=== PATIENT | male | born 1990 | race Caucasian/White ===

== ENCOUNTER 2020-05-18 18:55 | Emergency (ER) | payer OTHER, SELFPAY ==
[2020-05-18 19:40] VITALS: BP 159/89; PULSE 114; RESP 20; TEMP 36.2; O2SAT 100
[2020-05-18 20:21] LABS: Basophils Absolute Auto 0.04 K/mm3 (0.00-0.10); Basophils Percent Auto 0.7 % (0.0-1.0); Eosinophils Absolute Auto 0.02 K/mm3 (0.02-0.50); Eosinophils Percent Auto 0.3 % (1.0-6.0); Hematocrit 52.5 % (40.0-54.0); Hemoglobin 18.2 g/dL (14.0-18.0); Immature Granulocyte Absolute 0.02 K/mm3 (0.00-0.00); Immature Granulocyte Percent A 0.3 % (0.0-0.0); Lymphocytes Absolute Auto 3.26 K/mm3 (1.10-4.50); Lymphocytes Percent Auto 55.3 % (18.0-42.0); Mean Corpuscular HGB Conc 34.7 g/dL (32.0-36.0); Mean Corpuscular Hemoglobin 30.6 pg (27.0-31.0); Mean Corpuscular Volume 88.2 fL (78.0-102.0); Mean Platelet Volume 9.7 fl (8.7-11.0); Monocytes Absolute Auto 0.55 K/mm3 (0.10-0.90); Monocytes Percent Auto 9.3 % (2.0-11.0); Neutrophils Percent Auto 34.1 % (50.0-70.0); Platelet Count Result 360 K/mm3 (150-420); Red Blood Count 5.95 M/mm3 (4.70-6.10); Red Cell Distribution Width 11.9 % (11.6-14.4); White Blood Count 5.9 K/mm3 (4.8-10.8)
[2020-05-18 20:30] VITALS: BP 152/78; PULSE 115; RESP 20; O2SAT 99
[2020-05-18] MEDS: SODIUM CHLORIDE 0.9% IV 1,000 ML 999 ML (20:36)
[2020-05-18 20:44] LABS: Alanine Aminotransferase 43 U/L (16-63); Albumin Level 4.7 g/dL (3.4-5.0); Alkaline Phosphatase 72 U/L (46-116); Anion Gap 16 mmol/L (8-16); Aspartate Amino Transferase 52 U/L (15-37); Bilirubin,Total 1.6 mg/dL (0.00-1.00); Blood Urea Nitrogen 10 mg/dL (7-18); Calcium 8.8 mg/dL (8.5-10.1); Carbon Dioxide 25 mmol/L (21-32); Chloride 102 mmol/L (98-108); Estimated CRCL calculation 74 ml/min; Estimated Glomerular Filt Rate 54; Glucose 107 mg/dL (70-99); Osmolality Calculated 295 mOsm/kg (285-295); Potassium 3.6 mmol/L (3.5-5.1); Sodium 143 mmol/L (136-145); Thyroid Stimulating Hormone 2.83 uIU/mL (0.36-3.74); Total Protein 8.5 g/dL (6.4-8.2)
[2020-05-18 20:45] LABS: Appearance Urine Clear (Clear); Bilirubin Urine Negative (Negative); Color Urine Yellow (Yellow); Glucose Urine UA Negative (Negative); Ketones Urine Negative (Negative); Leukocyte Esterase Ur Negative LEU/UL (Negative); Nitrate Urine Negative (Negative); Protein Urine Trace (Negative); Urobilinogen Urine 0.2 mg/dL (0.2-1.0)
[2020-05-18 20:48] LABS: Ethanol 325 mg/dL (0-6)
[2020-05-18 20:51] LABS: Add Urine Microscopic? YES; Blood Urine Trace-Intact (Negative); Squamous Epithelial Cell Urine Occasional /hpf (Few)
--- NOTE | 2020-05-18 20:52 | ED.ANXIETY ---
HPI - Anxiety General Chief Complaint: Anxiety Stated Complaint: panic attack, psych eval Source: patient and family Mode of arrival: ambulatory Limitations: no limitations History of Present Illness HPI narrative: This is a 29-year-old male presents with his father after he has been having episodes of anxiety causing emotional distress, currently has been drinking with some history of sadness depression with anxiety but has not been seen by a primary care physician. Currently there is no suicidal intent or plan, has been having this anxiety off and on since his left him and took there are baby along with her. complaint: anxiety Onset (ago): day(s) Severity: moderate Quality: intermittent Provoking factors: emotional stress Relieving factors: nothing Exacerbating factors: thinking about event Associated symptoms: chest pain and shortness of breath Related Data Allergies Allergy/AdvReac Type Severity Reaction Status Date / Time No Known Allergies Allergy Unverified 08/23/19 09:36 Review of Systems Review of Systems: All systems reviewed & are unremarkable except as noted in HPI and below PMFSH Past Medical History Medical History Hypogonadotropic hypogonadism Social History Social History Smoking status: Never smoker Alcohol intake: current Gender identity (if verbalized by the patient): Female Exam Const: General: no acute distress and alert Orientation/consciousness: patient oriented x3 HENMT: Head: normal to inspection Eyes: Pupils: Equal, round and reactive pupils present EOM: EOMs intact bilaterally Neck: Neck: normal visual inspection, no lymphadenopathy and no meningeal signs Chest: Chest palpation & inspection: normal inspection of the chest Resp: Effort & Inspection: normal respiratory effort Auscultation: clear to auscultation bilaterally GI: GI Palp: Yes Soft to palpation Auscultation: normal bowel sounds Back/Spine/Pelvis: Back: no CVA tenderness Skin: General skin exam: normal color Rashes: no rashes Neuro: General: patient oriented x3, moves all extremities and no meningeal signs Extrem: General: normal to inspection and no pedal edema Psych: Affect: Anxious affect present Thought content: Yes Normal thought content present Course Course Emergency Course: Patient currently anxious, has a elevated blood alcohol level, will administer 0.5 of Xanax, with the advice of follow-up with primary care physician for further evaluation and treatment. Vital Signs Vital signs: Vital Signs Temperature 36.2 C L 05/18/20 19:40 Pulse Rate 114 H 05/18/20 19:40 Respiratory Rate 20 05/18/20 19:40 Blood Pressure 159/89 H 05/18/20 19:40 Pulse Oximetry 100 05/18/20 19:40 Temperature 36.2 C L 05/18/20 19:40 Pulse Rate 114 H 05/18/20 19:40 Respiratory Rate 20 05/18/20 19:40 Blood Pressure 159/89 H 05/18/20 19:40 Pulse Oximetry 100 05/18/20 19:40 MDM - Anxiety Lab Data Result diagrams: 05/18/20 19:55 05/18/20 19:55 Labs: Lab Results 05/18/20 05/18/20 05/18/20 Range/Units 19:55 19:55 20:40 WBC 5.9 (4.8-10.8) K/mm3 RBC 5.95 (4.70-6.10) M/mm3 Hgb 18.2 H (14.0-18.0) g/dL Hct 52.5 (40.0-54.0) % MCV 88.2 (78.0-102.0) fL MCH 30.6 (27.0-31.0) pg MCHC 34.7 (32.0-36.0) g/dL RDW 11.9 (11.6-14.4) % Plt Count 360 (150-420) K/mm3 MPV 9.7 (8.7-11.0) fl Immature Gran % (Auto) 0.3 H (0.0-0.0) % Neut % (Auto) 34.1 L (50.0-70.0) % Lymph % (Auto) 55.3 H (18.0-42.0) % Yates % (Auto) 9.3 (2.0-11.0) % Eos % (Auto) 0.3 L (1.0-6.0) % Baso % (Auto) 0.7 (0.0-1.0) % Lymph # (Auto) 3.26 (1.10-4.50) K/mm3 Yates # (Auto) 0.55 (0.10-0.90) K/mm3 Eos # (Auto) 0.02 (0.02-0.50) K/mm3 Baso # (Auto) 0.04 (0.00-0.10) K/mm3 Abs Immat Gran
[2020-05-18 20:54] LABS: Amphetamine Screen Urine Negative (Negative); Barbiturate Screen Urine Negative (Negative); Benzodiazepines Screen Urine Negative (Negative); Cannabinoid Screen Urine Negative (Negative); Cocaine Screen Urine Negative (Negative); Methadone Screen Urine Negative (Negative); Opiate Screen Urine Negative (Negative); Phencyclidine Screen Urine Negative (Negative)
[2020-05-18] MEDS: ALPRAZolam (*CRX) 0.5 MG TABLET PO (21:17)
[2020-05-18 21:30] VITALS: BP 150/76; PULSE 118; RESP 20; O2SAT 96
== END 2020-05-18 21:30 | disposition home or self-care (01) ==
PROVIDERS: Emergency Provider Emergency Medicine
DX: F41.9 Anxiety disorder, unspecified (principal); F41.0 Panic disorder [episodic paroxysmal anxiety]; F10.920 Alcohol use, unspecified with intoxication, uncomplicated
CPT/HCPCS: 36415; 80053; 80307; 81001; 84443; 85025; 96360; 99283; A9270; J7030

== ENCOUNTER 2025-03-23 13:25 | Emergency (ER) | payer OTHER, SELFPAY ==
[2025-03-23] VITALS (14 sets, daily range): BP systolic 137–156; BP diastolic 96–113; PULSE 88–111; RESP 26; TEMP 36.7; O2SAT 92–99
--- NOTE | ~2025-03-23 | XR_ITS ---
Examination: XR chest 1V portable Clinical History: SOB Comparison: None Technique: Portable AP Findings: Heart size normal. Lungs clear. No acute bony abnormality. IMPRESSION: 1. No acute cardiopulmonary findings given portable technique. Reviewed, dictated and finalized at location R.
--- NOTE | 2025-03-23 13:32 | ECG_ITS ---
Test Date: 2025-03-23 13:36:56 Measurements Intervals [place] Rate: 102 P: 30 NV: 132 QRS: -19 QRSD: 109 T: -33 QT: 347 QTc: 452 Interpretive Statements SINUS TACHYCARDIA BORDERLINE R WAVE PROGRESSION, ANTERIOR LEADS NONSPECIFIC T-WAVE ABNORMALITY- ANTERIOR LEADS BASELINE WANDER- II, III, AVR, AVL, AVF, V1, V4 BORDERLINE ECG No previous ECG available for comparison Electronically Signed On 03-23-2025 14:17:39 CDT by Allan Gross D.O.
--- NOTE | 2025-03-23 13:34 | ED_ITS ---
HPI - SOB/Dyspnea General Chief Complaint: Shortness of Breath/Dyspnea Stated Complaint: alcohol withdrawls Time Seen by Provider: 03/23/25 13:27 Source: patient and family Mode of arrival: ambulatory Limitations: no limitations History of Present Illness HPI Narrative: Patient is a 34-year-old male with significant alcoholism here with beginning stages of detox day 1 and having chest pain and shortness of breath. He is having many other nonspecific complaints related to the withdrawal. He has been in this situation before and said it feels the same. He is planning to go to inpatient detox after he leaves the emergency room. Assuming he does not need admission. MD elicited complaint: shortness of breath and chest pain Pertinent past history: other (Diabetes 2, hypertension, alcoholism, congestive heart failure) Onset (ago): day(s) (1) Context: other (Patient currently in alcohol withdrawal/detox planning inpatient services when he leaves emergency room; he is having chest pain and shortness of breath and needed medical evaluation prior to detox/rehab) Timing: constant Severity: moderate Exacerbating factors: nothing Relieving factors: nothing Known history of: congestive heart failure and diabetes Associated symptoms: chest pain, pain with inspiration, cough, paresthesias, carpopedal spasm, sense of impending doom and dizziness Treatment prior to arrival: none Related Data Home oxygen amount: none Home Medications ?Medication ?Instructions ?Recorded ?Confirmed ?Last Taken ?Type amphetamine 15 mg tablet, mg PO 03/23/25 Unknown Hist ory immediate and extended release 24 hour (Dyanavel XR) empagliflozin .ROUTE 03/23/25 Unknown His tory folic acid .ROUTE 03/23/25 Unknown His tory metoprolol tartrate .ROUTE 03/23/25 Unknown His tory Allergies Allergy/AdvReac Type Severity Reaction Status Date / Time No Known Allergies Allergy Verified 03/23/25 13:29 Review of Systems 2 Review of Systems: All systems reviewed & are unremarkable except as noted in HPI and below Constitutional: Constitutional: Reports no additional constitutional complaints Eyes: Eyes: Reports no additional eye complaints ENT: Reports system reviewed and no additional complaints, except as documented Cardiovascular: Cardiovascular: Reports no additional cardiovascular complaints Respiratory: Respiratory: Reports no additional respiratory complaints Gastrointestinal: Gastrointestinal: Reports no additional gastrointestinal complaints Genitourinary: Genitourinary: Reports no additional male genitourinary complaints Musculoskeletal: Musculoskeletal: Reports no additional musculoskeletal complaints Integumentary/Breasts: Skin/Breast: Reports system reviewed and no additional complaints, except as docu Neurologic: Reports system reviewed and no additional complaints, except as documented Psychiatric: Psychiatric: Reports no additional psychiatric complaints Endocrine: Endocrine: Reports no additional endocrine complaints Hematologic/Lymphatic: Hematologic/Lymphatic: Reports no additional hematologic/lymphatic complaints Allergic/Immunologic: Allergic/Immunologic: Reports no additional allergic/immunologic complaints PMFSH Past Medical History Medical History Hypogonadotropic hypogonadism Social History Social History Smoking status: Never smoker Alcohol intake: current Gender identity (if verbalized by the patient): Female Exam 2 Const: General: ill appearing Nutritional Appearance: well nourished O rientation/consciousness: patient oriented x3 Limitations: other limitations (Clinical condition of detox/withdrawal from alcoholism) HENMT: Head: normal to inspection Ears: external ears normal F lizeth/Nose/Sinus: Normal external nose present Eyes: Conjunctivae: conjunctivae normal Pupils: Equal, round and reactive pupils present EOM: EOMs intact bilaterally Neck: Neck: normal visual inspection Chest: Chest palpation & inspection: normal inspection of the chest Resp: Effort & Inspection: abnormal respiratory effort, not labored, no retractions, tachypneic and no use of accessory muscles Auscultation: clear to auscultation bilaterally, no crackles, no rales, no rhonchi, no wheezes, breath sounds present and diminished lung sounds Cardio: Rate: tachycardic Rhythm: regular rhythm Heart sounds: no murmurs GI: Inspection: non-distended GI Palp: Yes Soft to palpation and No Tenderness to palpation present (GI) Auscultation: normal bowel sounds : General: Yes bladder normal to palpation Back/Spine/Pelvis: Back: no CVA tenderness Skin: General skin exam: normal color Rashes: no rashes Wounds: no wounds Neuro: General: patient oriented x3, moves all extremities and no meningeal signs Extrem: General: normal to inspection, no clubbing, cyanosis or edema and no pedal edema Psych: Mental Status: mental status grossly normal Affect: normal affect Attitude: cooperative Course Vital Signs Vital signs: Vital Signs Temperature 36.7 C 03/23/25 13:27 Pulse Rate 105 H 03/23/25 13:27 Respiratory Rate 26 H 03/23/25 13:27 Blood Pressure 145/105 H 03/23/25 13:27 Pulse Oximetry 99 03/23/25 13:27 Oxygen Delivery Room Air 03/23/25 13:27 Temperature 36.7 C 03/23/25 13:27 Pulse Rate 88 03/23/25 15:41 Respiratory Rate 26 H 03/23/25 13:46 Blood Pressure 150/97 H 03/23/25 15:31 Pulse Oximetry 94 03/23/25 15:31 Oxygen Delivery Room Air 03/23/25 13:38 MDM - SOB/Dyspnea MDM Narrative Medical decision making narrative: Patient is a 34-year-old male with chest pain and shortness of breath currently in alcohol detox/withdrawal. Cardiac and withdrawal workup at this time. IV fluids. Zofran. Protonix. Lab Data Attestation: I reviewed the patient's lab results. 03/23/25 13:52 03/23/25 13:52 Labs: Lab Results 03/23/25 03/23/25 03/23/25 Range/Units 13:52 15:49 15:54 WBC 6.0 (4.8-10.8) K/mm3 RBC 5.53 (4.70-6.10) M/mm3 Hgb 17.3 (14.0-18.0) g/dL Hct 49.5 (40.0-54.0) % MCV 89.5 (78.0-102.0) fL MCH 31.3 H (27.0-31.0) pg MCHC 34.9 (32-36) g/dL RDW 13.5 (11.6-14.4) % Plt Count 251 (150-420) K/mm3 MPV 9.7 (8.7-11.0) fl Immature Gran % (Auto) 0.2 H (0.0-0.0) % Neut % (Auto) 61.0 (50.0-70.0) % Lymph % (Auto) 27.3 (18.0-42.0) % [place] % (Auto) 10.6 (2.0-11.0) % Eos % (Auto) 0.2 L (1.0-6.0) % Baso % (Auto) 0.7 (0.0-1.0) % Lymph # (Auto) 1.64 (1.10-4.50) K/mm3 [place]y # (Auto) 0.64 (0.10-0.90) K/mm3 Eos # (Auto) 0.01 L (0.02-0.50) K/mm3 Baso # (Auto) 0.04 (0.00-0.10) K/mm3 Abs Immat Gran (auto) 0.01 H (0.00-0.00) K/mm3 Absolute Neuts (auto) 3.67 (1.70-7.20) K/mm3 Absolute Nucleated RBC 0.00 (0.00-0.00) K/mm3 Nucleated RBC % 0.0 (0-0.0) % PT 11.7 (9.50-12.1) Seconds INR 1.1 APTT 25.7 (23.9-30.70) Sec D-Dimer 0.30 (0.19-0.50) mg/L Sodium 138 (137-145) mmol/L Potassium 3.9 (3.4-5.0) mmol/L Chloride 99 (98-107) mmol/L Carbon Dioxide 20 L (22-30) mmol/L Anion Gap 19 H (4-12) mmol/L BUN 9 (9-20) mg/dL Creatinine 1.03 (0.7-1.3) mg/dL Estim Creat Clear Calc 100 ml/min Estimated GFR > 60 (59 - ) Glucose 104 (65-110) mg/dL Calculated Osmolality 284 L (285-295) mOsm/kg Lactic Acid 4.9 H 3.7 H (0.4-2.0) mmol/L Calcium 9.1 (8.4-10.2) mg/dL Magnesium 1.5 L (1.6-2.3) mg/dL Total Bilirubin 3.1 H (0.2-1.3) mg/dL AST 48 (17-59) U/L ALT 42 (6-50) U/L Alkaline Phosphatase 89 (38-126) U/L Troponin I < 0.012 < 0.012 (0.000-0.034) ng/mL NT-Pro-B Natriuret Pep 67 (19.9-100) pg/mL Total Protein 8.5 H (6.3-8.2) g/dL Albumin 4.6 (3.5-5.1) g/dL Lipase 227 (23-300) U/L Imaging Data Attestation: I personally reviewed and interpreted this imaging study as follows: Radiologist's impression: Chest x-rays negative for acute process ECG Data EKG #1: Attestation: I personally reviewed and interpreted this ECG as follows: ECG completion date: 03/23/25 ECG completion time: 14:03 EKG Interpretation: tachycardia, sinus rhythm, no ectopy, non-specific ST changes, normal QRS, normal QT and NL axis Discharge Plan Discharge Clinical Impression: Dehydration Alcohol withdrawal Qualifiers: Complication of substance-induced condition: uncomplicated Qualified Code(s): F 10.930 - Alcohol use, unspecified with withdrawal, uncomplicated Patient Disposition: Home Condition: Stable Instructions: Alcohol Withdrawal (DC) Additional Instructions: Please go directly to the alcohol detoxification center. Patient Language: Mauritian Prescriptions: No Action Dyanavel XR 15 mg tablet, IR - ER, biphasic 24hr PO metoprolol tartrate .ROUTE empagliflozin [Jardiance] .ROUTE folic acid .ROUTE Follow-up/Referrals: UNKNOWN,DOCTOR [Non-Staff] Stand Alone Forms: Work/School Release IP Time of Disposition: 16:22
[2025-03-23 13:57] LABS: Hematocrit 49.5 % (40.0-54.0); Hemoglobin 17.3 g/dL (14.0-18.0); Immature Granulocyte Percent A 0.2 % (0.0-0.0); Lymphocytes Absolute Auto 1.64 K/mm3 (1.10-4.50); Mean Corpuscular HGB Conc 34.9 g/dL (32-36); Mean Corpuscular Hemoglobin 31.3 pg (27.0-31.0); Mean Corpuscular Volume 89.5 fL (78.0-102.0); Nucleated Red Blood Cells Absolute Auto 0.00 K/mm3 (0.00-0.00); Nucleated Red Blood Cells Perc 0.0 % (0-0.0); Platelet Count Result 251 K/mm3 (150-420); Red Blood Count 5.53 M/mm3 (4.70-6.10); White Blood Count 6.0 K/mm3 (4.8-10.8)
[2025-03-23] MEDS: ONDANSETRON INJ 4 MG/2 ML VIAL IV PUSH (13:59)
[2025-03-23] MEDS: PANTOPRAZOLE SODIUM IV 40 MG VIAL IV PUSH (14:00)
[2025-03-23] MEDS: SODIUM CHLORIDE 0.9% IV 1,000 ML 999 ML IV CONT ×2 (14:00→14:37)
[2025-03-23 14:09] LABS: Alanine Aminotransferase 42 U/L (6-50); Albumin Level 4.6 g/dL (3.5-5.1); Alkaline Phosphatase 89 U/L (38-126); Anion Gap 19 mmol/L (4-12); Aspartate Amino Transferase 48 U/L (17-59); Bilirubin,Total 3.1 mg/dL (0.2-1.3); Blood Urea Nitrogen 9 mg/dL (9-20); Calcium 9.1 mg/dL (8.4-10.2); Carbon Dioxide 20 mmol/L (22-30); Chloride 99 mmol/L (98-107); Estimated CRCL calculation 100 ml/min; Estimated Glomerular Filt Rate > 60; Glucose 104 mg/dL (65-110); Magnesium 1.5 mg/dL (1.6-2.3); Osmolality Calculated 284 mOsm/kg (285-295); Potassium 3.9 mmol/L (3.4-5.0); Sodium 138 mmol/L (137-145); Total Protein 8.5 g/dL (6.3-8.2)
[2025-03-23 14:12] LABS: INR 1.1; Partial Thromboplastin Time 25.7 Sec (23.9-30.70); Prothrombin Time 11.7 Seconds (9.50-12.1)
[2025-03-23 14:18] LABS: NT Pro B Type Natriuretic Pept 67 pg/mL (19.9-100)
[2025-03-23 14:21] LABS: Troponin I < 0.012 ng/mL (0.000-0.034)
[2025-03-23 14:22] LABS: Lipase 227 U/L (23-300)
[2025-03-23] MEDS: MAGNESIUM SULF 2 GM/WATER 50ML 2 GM/50 ML BAG IVPB (14:26)
[2025-03-23] MEDS: THIAMINE HCL 200 MG/2 ML VIAL 100 MG IV PUSH (14:32)
[2025-03-23] MEDS: SODIUM CHLORIDE 0.9% IV 500 ML 999 ML IV CONT (15:04)
[2025-03-23] MEDS: diazePAM INJ (*CRX) 10 MG/2 ML SYRINGE 5 MG IV PUSH (15:07)
--- OUTSIDE RECORDS SUMMARY | 2025-03-23 15:29 | XMS_ITS | Clinical Summary ---
Author Organization [facility] Virtual Care Address [address] [place] [id number] Phone Care Team Providers Care Morgue Keeper Name Role Phone Pramod Garza MD Primary Care Provi debbi Dorian Lozano MD Unavailable [phone] Lucas Alexandre MD Unavailable [phone] Allergies No known active allergies Medications multivit jccpftqv-qjlb-UP- calcium (THERA-M) 9 mg iron-400 mcg tabletIndications :Vitamin Deficiency Prevention Take 1 tablet by mouth daily 30 tablet 4 Active testosterone cypionate (DEPO-TESTOTERONE ) 200 mg/mL injectionIndicati ons:Androgen Deficiency Inject 0.5 mL (100 mg total) into the muscle as instructed every 7 days Prescribed by a mens clinic 2 mL 3 4 Active escitalopram (LEXAPRO) 20 mg tabletIndications :Anxiety with Depression Take 1 tablet (20 mg total) by mouth daily 30 tablet 5 Active methylphenidate ER (CONCERTA) 54 mg CR tabletIndications :Attention-Defici t Hyperactivity Disorder Take 1 tablet (54 mg total) by mouth every morning 30 tablet 5 Active thiamine (VITAMIN B1) 100 mg tablet Take 1 tablet (100 mg total) by mouth daily 30 tablet 5 Active Jardiance 25 mg tablet TAKE 1 TABLET(25 MG) BY MOUTH DAILY 30 tablet 11 5 Active metoprolol XL (TOPROL-XL) 50 mg extended release tablet Take 1 tablet (50 mg total) by mouth daily 90 tablet 3 5 Active folic acid (FOLVITE) 1 mg tablet TAKE 1 TABLET BY MOUTH DAILY 100 tablet 1 5 Active Active Problems Problem Noted Date Diagnosed Date Chest pain 10/22/2024 Acute alcoholic intoxication without complicatio n 10/21/2024 NICM (nonischemic cardiomyopathy) 01/13/2024 Assessment & Plan (01/13/2024 5:13 PM CDT): Mr. Guzman endorses NYHA Class I-II heart failure symptoms in the office today. He is euvolemic on exam. He is tolerating current medications which I have asked him to continue. I spoke with him about adding spironolactone and he did not want to add additional medications and felt like he had a problem with it in the past. I can find no documentation. He stated that he was hoping to be taking less medications. Reviewed with patient that the recommendation is to continue the medications even when the heart function improves. He will return for follow up in November of [address] Lozano. He has appointment with Dr. Alexandre in February at which time he will undergo an echocardiogram. Chronic systolic heart failure 12/17/2023 Assessment & Plan (12/17/2023 2:40 PM CDT): Mr. Guzman endorses NYHA Class II heart failure symptoms in the office today. He is euvolemic on exam and he is tolerating current medications. I have asked him to discontinue losartan and to start Entrestso 24-26 mg BID. He will continue other medications including metoprolol, Jardiance, and furosemide. I have asked him to return in one month for follow up. Atrial fibrillation and flutter 10/19/2023 Attention deficit hyperactivity disorder (ADHD) 03/14/2023 Chronic kidney disease, stage II (mild) 08/24/19 21 Hypogonadism in male 08/23/2020 Anxiety 08/23/2020 Resolved Problems Problem Noted Date Diagnosed Date Resolved Date Acute on chronic congestive heart failure, unspecified heart failure type 10/29/2023 Acute on chronic respiratory failure with hypoxia 10/29/2023 12/03/2023 Pneumonia in infectious disease 10/19/2023 02/18/2024 Alcohol withdrawal with delirium 10/19/2023 12/03/2023 Acute hypoxemic respiratory failure 10/19/2023 12/03/2023 Immunizations Immunization Administration Dates Next Due Hep B, Adolescent or Pediatric 09/14/1999,1998,03/05/1999 Influenza, Quadrivalent, Spl it, Intramuscular 03/31/2021 Influenza, Trivalent, IM (MDV) 04/07/2023,2021,04/03/2022 Influenza, Unspecified 09/23/2024(Deferr ed: Patient Refused),03/18/2024(Deferred: Patient Refused),02/18/2024(Deferred: Patient Refused),08/10/2023(Deferred: Patient Refused),08/07/2022(Deferred: Patient Refused),03/09/2020 Pfizer SARS-CoV-2 Monovalent Vaccination (12+ Yrs) PURPLE 07/10/2020,06/19/2020 Tdap 03/23/2018 Surgical History Surgery Date Site/Laterality Comments ESOPHAGOGASTRODUODENOSCOPY With esophageal dilation Medical History Medical History Date Comments Depression ADHD (attention deficit hyperactivity disorder) Anxiety Family History Medical History Relation Name Comments No Known Problems Brother Alcohol abuse Father Miguel Guzman Alzheimer's disease Mother Maria Dolores Abarca Depression Mother Maria Dolores Abarca Relation Name Status Comments Brother Alive Father Miguel Alive Mother Maria Dolores Abarca Alive Social History Tobacco Use Types Packs/Day Years Used Date Smoking Tobacco: Never Smokeless Tobacco: Never Tobacco Cessation:Counseling Given: Not Answered Alcohol Use Standard Drinks/Week Comments Yes 0 (1 standard drink = 0.6 oz pur e alcohol) [facility] Utilities Answer Date Recorded In the past 12 months has e [employer], gas, oil, or water [employer] threatened to shut off services in your home? No 10/22/2024 Social Connection and Isolation Panel Answer Date Recorded In a typical week, how many times do you talk on the phone with family, friends, or neighbors? More than three times a week 10/22/2024 How often do you get togethe r with friends or relatives? More than three times a week 10/22/2024 How often do you attend chur ch or zoroastrian services? More than 4 times per year 10/22/2024 Do you belong to any clubs o r organizations such as evangelical groups, unions, fraternal or athletic groups, or school groups? Yes 10/22/2024 How often do you attend meet ings of the clubs or organizations you belong to? More than 4 times per year 10/22/2024 Are you , , di vorced, , never , or living with a partner? 10/22/2024 AUDIT-C Answer Date Recorded Q1: How often do you have a drink containing alcohol? Never 12/04/2023 Q2: How many drinks containi ng alcohol do you have on a typical day when you are drinking? Patient does not drink Frequency of Binge Drinking Not on file 11/08 Overall Financial Resource Strain (CARDIA) Answe r Date Recorded How hard is it for you to pa y for the very basics like food, housing, medical care, and heating? Not very hard 10/22/2024 PHQ-2 Answer Date Recorded PHQ-2 Total Score (If total score is 3 or more points, staff should administer the PHQ-9) 0 09/23/2024 Hunger Vital Sign Answer Date Recorded Within the past 12 months, y ou worried that your food would run out before you got the money to buy more. Never true 10/23/19 25 Within the past 12 months, t he food you bought just didn't last and you didn't have money to get more. Never true 10/22/2024 PRAPARE - Transportation Answer Date Re corded In the past 12 months, has l ack of transportation kept you from medical appointments or from getting medications? No 10/07 In the past 12 months, has l ack of transportation kept you from meetings, work, or from getting things needed for daily living? No 10/22/2024 Housing Stability Vital Sign Answer Anurag e Recorded In the last 12 months, was t here a time when you were not able to pay the mortgage or rent on time? No 10/21/2023 In the last 12 months, how many places have you lived? 1 10/21/2023 In the last 12 months, was t here a time when you did not have a steady place to sleep or slept in a residential (including now)? No 10/21/2023 Housing Stability Vital Sign Answer Anurag e Recorded In the last 12 months, was t here a time when you were not able to pay the mortgage or rent on time? No 10/22/2024 Number of Times Moved in the Last Year Not on fi le 10/22/2024 At any time in the past 12 m [facility], were you homeless or living in a residential (including now)? No 10/22/2024 Personal Safety Answer Date Recorded Have you ever been in or are you currently in a harmful physical or emotional relationship or is someone making you feel afraid or unsafe? Denies 10/21/2024 Sex and Gender Information Value Date Recorded Sex Assigned at Not on file Legal Sex Male 7:22 PM CDT Gender Identity Male 10/05/2020 12:17 PM CDT Sexual Orientation Not on file Obstetrics History Last Filed Vital Signs Vital Sign Reading Time Taken Comments Blood Pressure 134/97 10/23/2024 8:30 AM CDT Pulse 80 10/23/2024 8:30 AM CDT Temperature 36.5 C (97.7 F) 10/23/2024 4:19 AM CDT Respiratory Rate 18 10/23/2024 8:30 AM CDT Oxygen Saturation 97% 10/23/2024 8:30 AM CDT Inhaled Oxygen Concentration - - Weight 101.4 kg (223 lb 8.7 oz) 10/21/2024 3:33 PM CDT Height 175.3 cm (5' 9) 09/23/2024 9:55 AM CDT Body Mass Index 33.01 09/23/2024 9:55 AM CDT Plan of Treatment Health Maintenance Due Date Last Done Comments Pneumococcal vaccine <65 (1 of 2 - PCV) 2008 HPV Vaccines (1 - 3-dose SCD M series) 2016 Covid-19 Vaccine (3 - 2024-2 6 season) 2025 07/10/2020, 06/19/2020 Influenza Vaccine (#1) 2025 3, 04/09/2022, 04/03/2022, Additional history exists Depression Screening 09/23/2025 09/23/2024, 08/18/2024, 08/13/2023, Additional history exists Regular Well Visit/Exam 18-64 09/23/2025 09/23/2024, 08/23/2020 DTaP/Tdap/Td Vaccine (2 - Td or Tdap) 03/23/2028 03/23/2018 Hepatitis B Screening Completed 09/14/1999 , 04/13/1999, 03/05/1999 Hepatitis C Screening Completed 10/19/2023 Varicella Vaccines Discontinued Procedures Procedure Name Priority Date/Time Associated Diagnosis Comments HEPATITIS PANEL, ACUTE Routine 10/19/2023 3:30 PM CDT from Last 3 Months or Most Recently Relevant to Health Maintenance Results * Hepatitis panel, acute Blood (10/19/2023 3:30 PM CDT) Hep A IgM Nonreactive Nonreactive Comment: Interpretive Data: If Hep A IgM Ab is reported as Equivocal, a new sample should be drawn in two weeks for testing. Current interpretive data was last revised on 19. Hep B core IgM Nonreactive Nonreactive [facility] Comment: Interpretive Data If HepB Core IgM Ab is reported as Equivocal, a new sample should be drawn in two weeks for testing. Current interpretive data was last revised on 19. Hep C Ab Nonreactive Nonreactive [facility] Comment: Interpretive Data Nonreactive: Antibodies to HCV not detected. Does NOT exclude the possibility of recent exposure to HCV. Equivocal: Equivocal for HCV antibodies. Supplemental molecular testing will be automatically performed to determine infection status in accordance with current CDC screening recommendations. Reactive: Positive for HCV antibodies. This may represent current or past HCV infection. Supplemental molecular testing will be automatically performed to determine current infection status in accordance with current CDC screening recommendations. Interpretive data was last revised on 2019. HepBsAg Nonreactive Nonreactive [facility] Blood 10/19/2023 3:30 PM CDT 10/19/2023 3:41 PM CDT Rudolph Diamond MD LAB MICROBIOLOGY - GENERAL O RDERABLES Final Result [facility] [address] Department [place] [address] from Last 3 Months or Most Recently Relevant to Health Maintenance Insurance [facility] Advance Directives For more information, please contact: [phone] * Full Code (Latest Code Status on File) Date Activated Date Inactivated Comments 10/21/2024 9:38 PM 10/23/2024 4:07 PM * Full Code Date Activated Date Inactivated Comments 10/29/2023 10:22 PM 11/02/2023 9:40 PM * Full Code Date Activated Date Inactivated Comments 10/19/2023 3:32 AM 10/23/2023 7:17 PM Care Teams Morgue Keeper Relationship Specialty Start Date End Date Pramod Garza MD [address] [place] [address] PCP - General Family Medicine 10/29/23 Dorian Lozano MD [address] [place] [address] Consulting Physician Transplant 11/02/23 Lucas Alexandre MD [address] [place] [address] Consulting Physician Interventional Cardiology 11/02/23
--- OUTSIDE RECORDS SUMMARY | 2025-03-23 15:29 | XMS_ITS | Clinical Summary ---
Author Organization [facility] Address [facility] [address] [place] [address] Care Team Providers Care Oil Tester Name Role Phone Unavailable Primary Care Provider Unavailabl e Social History Tobacco Use Types Packs/Day Years Used Date Smoking Tobacco: Never Assessed Sex and Gender Information Value Date Recorded Sex Assigned at Not on file Legal Sex Male 6:16 PM [employer]OR OF [employer] Gender Identity Not on file Sexual Orientation Not on file Plan of Treatment Health Maintenance Due Date Last Done Comments Annual Physical 1992 Hepatitis C 2007 HPV Vaccines (1 - 3-dose SCDM series) 2016 COVID-19 Vaccine ( - season) 2025 07/10/2020, 06/19/2020 Influenza Adult (#1) 2025 04/07/2023, 04/09/2022, 04/03/2022, Additional history exists DTaP, Tdap and Td Vaccines (2 - Td or Tdap) 03/23/2028 03/23/2018 Hepatitis B Vaccines Completed 09/14/1999, 04/13/1999, 03/05/1999 Meningococcal B Vaccine Aged Out No l onger eligible based on patient's age to complete this topic Meningococcal Vaccine Aged Out No veronique curtis eligible based on patient's age to complete this topic Pneumococcal Vaccine: Pediatrics (0 to 5 Years) and At-Risk Patients (6 to 49 Years) Aged Out No longer eligible based on patient's age to complete this topic RSV Immunizations Under 20 Months Aged Out No longer eligible based on patient's age to complete this topic Insurance [facility]
--- OUTSIDE RECORDS SUMMARY | 2025-03-23 15:29 | XMS_ITS | Clinical Summary ---
Author Organization [facility] Address [address] [place] [address] Phone Care Team Providers Care Barge Worker Name Role Phone Darby Paulino MD Primary Care Provider [phone] Allergies No known active allergies Medications multivitamin tablet Take 1 Tablet by mouth daily. Active testosterone cypionate, micro (testosterone cyp, micro, bulk,) 100 % Powder Inject 0.5 mL by intramuscular injection. 05/19/20 23 Active empagliflozin (Jardiance) 25 mg tablet Take 25 mg by mouth daily. 10/29/19 25 Active folic acid (FOLVITE) 1 mg tablet Take 1,000 mcg by mouth daily. 04/29/20 24 Active metoprolol succinate (TOPROL XL) 50 mg Extended Release 24 hour tablet Take 50 mg by mouth daily. 11/03/19 25 Active thiamine (VITAMIN B-1) 100 mg tablet Take 100 mg by mouth daily. 10/24/19 25 Active sertraline (ZOLOFT) 100 mg tabletIndications :Anxiety Take 1 Tablet (100 mg) by mouth daily. 90 Tablet 3 12/23/19 25 Active dexmethylphenidat e (Focalin XR) 15 mg Extended Release capsuleIndication s:Attention deficit hyperactivity disorder (ADHD), predominantly inattentive type Take 1 Capsule (15 mg) by mouth daily in the morning. Max Daily Amount: 15 mg 30 Capsule 03/09/20 25 Active dexmethylphenidat e (Focalin XR) 15 mg Extended Release capsuleIndication s:Attention deficit hyperactivity disorder (ADHD), predominantly inattentive type Take 1 Capsule (15 mg) by mouth daily in the morning. Max Daily Amount: 15 mg 30 Capsule 09/05 025 Discontin ued(Reord er) Active Problems Problem Noted Date Diagnosed Date NICM (nonischemic cardiomyopathy) 01/13/2024 Attention deficit hyperactivity disorder (ADHD) 03/14/2023 Anxiety 08/23/2020 Resolved Problems Problem Noted Date Diagnosed Date Resolved Date Chronic systolic heart failure 12/17/2023 11/23/2024 Encounters Date Type Department Care Team Description 03/19/2025 4:02 PM CDT - 03/19/2025 5:20 PM CDT Emergency [facility] Emergency Department [address] [place] [address] Discharge Disposition: Left without being seen 03/08/2025 Refill [facility] [place] [address] [place] [phone] Darby Paulino MD Attention deficit hyperactivity disorder (ADHD), predominantly inattentive type 02/22/2025 External Device Data [facility] ABSTRACTION Provider, Abstract 02/22/2025 External Device Data [facility] ABSTRACTION Provider, Abstract 02/11/2025 Refill [facility] [place] [address] [place] [address] Darby Paulino MD Attention deficit hyperactivity disorder (ADHD), predominantly inattentive type 02/08/2025 External Device Data [facility] ABSTRACTION Provider, Abstract 01/25/2025 External Device Data [facility] ABSTRACTION Provider, Abstract 01/25/2025 External Device Data [facility] ABSTRACTION Provider, Abstract 01/11/2025 External Device Data [facility] ABSTRACTION Provider, Abstract 01/11/2025 External Device Data [facility] ABSTRACTION Provider, Abstract 12/28/2024 Telephone [facility] [place] [address] [place] [address] Darby Paulino MD Medication Assistance 12/22/2024 8:40 AM CDT Office Visit [facility] [place] [address] [place] [address] Darby Paulino MD Anxiety (Primary Dx); Attention deficit hyperactivity disorder (ADHD), predominantly inattentive type 12/21/2024 External Device Data ST[facility] ABSTRACTION Provider, Abstract from Last 3 Months Immunizations Immunization Administration Dates Next Due (ADACEL/BOOSTRIX)(10 YR UP) TDAP VACCINE, 0.5ML, IM 03/23/2018 (RECOMBIVAX HB/ENGERIX-B)(0- 19 YRS) HEPATITIS B VACCINE 5 MCG/0.5 ML OR 10 MCG/0.5 ML PED OR ADOL 3 DOSE (PF), IM 09/14/1999,04/13/1999,03/05/1999 INFLUENZA VACCINE QUADRIVALE NT 6 MOS UP IM 03/31/2021 Influenza Seasonal Unspecifi ed Formulation IM 04/07/2023,04/07/2023,04/09/2022,2021 Influenza, Unspecified Formulation 03/09/2020 Family History Medical History Relation Name Comments Autism Daughter No Known Problems Father Dementia Maternal Grandmother No Known Problems Mother Relation Name Status Comments Daughter Alive Father Alive Maternal Grandfather Maternal Grandmother Mother Alive Social History Tobacco Use Types Packs/Day Years Used Date Smoking Tobacco: Never Passive Smoke Exposure: Never Smokeless Tobacco: Never Tobacco Cessation:Counseling Given: No Alcohol Use Standard Drinks/Week Comments Yes 6 (1 standard drink = 0.6 oz pur e alcohol) Sex and Gender Information Value Date Recorded Sex Assigned at Not on file Legal Sex Male 9:50 PM CDT Gender Identity Not on file Sexual Orientation Not on file Last Filed Vital Signs Vital Sign Reading Time Taken Comments Blood Pressure 137/100 03/19/2025 4:07 PM CDT Pulse 76 12/22/2024 8:33 AM CDT Temperature 36.8 C (98.2 F) 03/19/2025 4:07 PM CDT Respiratory Rate 16 03/19/2025 4:07 PM CDT Oxygen Saturation 97% 03/19/2025 4:07 PM CDT Inhaled Oxygen Concentration - - Weight 94.4 kg (208 lb 1.8 oz) 03/19/2025 4:07 P M CDT Height 175.3 cm (5' 9) 03/19/2025 4:07 PM CDT Body Mass Index 30.73 03/19/2025 4:07 PM CDT Plan of Treatment Upcoming Encounters Date Type Department Care Team (Late st Contact Info) Description 06/29/2025 8:40 AM EDUCATION SPECIALIST Office Visit [facility] [address] [address] Darby Paulino MD [address] [place] [phone] Health Maintenance Due Date Last Done Comments HPV VACCINES (1 - 3-dose SCD M series) 2016 INFLUENZA VACCINE (#1) 2025 , 04/07/2023, 04/09/2022, Additional history exists COVID-19 Vaccine (3 - 2024-2 6 season) 2025 07/10/2020, 06/19/2020 Pre-Diabetes and Diabetes Screening 01/10/2026 01/10/2023 DTAP/TDAP/TD VACCINES (2 - T d or Tdap) 03/23/2028 03/23/2018 HEPATITIS B VACCINES Completed 09/14/1999, 04/13/1999, 03/05/1999 Preventative Visit- Commercial Completed 0 09/23/2024, 09/12/2022, 08/23/2020 Procedures Procedure Name Priority Date/Time Associated Diagnosis Comments EXTRA TUBE (URINE STARKEY) Stat 03/19/2025 4:33 PM CDT URINALYSIS W/REFLEX MICROSCOPIC Stat 03/19/2025 4:33 PM CDT COMPREHENSIVE METABOLIC PANEL Stat 03/19/2025 4:23 PM CDT CBC WITH DIFFERENTIAL Stat 03/19/2025 4:23 PM CDT HEMOGLOBIN A1C Routine 01/10/2023 8:52 AM CDT Screening for diabetes mellitus from Last 3 Months or Most Recently Relevant to Health Maintenance Results * EXTRA TUBE (URINE STARKEY) (03/19/2025 4:33 PM CDT) Urine URINE SPECIMEN OBTAINED BY CLEAN CATCH PROCEDURE / Unknown Collection / Unknown 03/19/2025 4:33 PM CDT 03/19/2025 4:44 PM CDT us Protocol [facility] Emergency MD URINE ORDERABLES Floridalma bruce Result [facility] CLIA# [id number] [place] [address] * (ABNORMAL) URINALYSIS WITH REFLEX MICROSCOPIC (03/19/2025 4:33 PM CDT) COLOR UA Yellow Pale to Dark Yellow 03/19/2025 5:02 PM CDT [facility] CLARITY UA Clear Clear 03/19/2025 5:02 PM CDT [facility] SPECIFIC GRAVITY UA 1.021 1.003 - 1.035 03/19/2025 5:02 PM CDT [facility] PH UA 6.0 5.0 - 8.0 03/19/2025 5:02 PM CDT [facility] LEUKOCYTE ESTERASE UA Negative Negative 03/19/2025 5:02 PM CDT [facility] NITRITE UA Negative Negative 03/19/2025 5:02 PM CDT [facility] PROTEIN UA Negative Negative 03/19/2025 5:02 PM CDT [facility] GLUCOSE UA 3+(A) Negative 03/19/2025 5:02 PM CDT [facility] KETONES UA Negative Negative 03/19/2025 5:02 PM CDT [facility] UROBILINOGEN UA Normal <2.0 mg/dL 5:02 PM CDT [facility] BILIRUBIN UA Negative Negative 03/19/2025 5:02 PM CDT [facility] BLOOD UA Negative Negative 03/19/2025 5:02 PM CDT [facility] WBC UA 0-2 0 - 2 /hpf 03/19/2025 5:02 PM CDT [facility] RBC UA 3-5(A) 0 - 2 /hpf 03/19/2025 5:02 PM CDT [facility] BACTERIA UA 1+(A) Negative /hpf 03/19/2025 5:02 PM CDT [facility] EPITHELIAL CELLS, URINE 0-5 0 - 5 /hpf 03/19/2025 5:02 PM CDT [facility] HYALINE CAST None Seen None Seen, 0-2 /lpf 03/19/2025 5:02 PM CDT [facility] Urine URINE SPECIMEN OBTAINED BY CLEAN CATCH PROCEDURE / Unknown Collection / Unknown 03/19/2025 4:33 PM CDT 03/19/2025 4:44 PM CDT us Protocol [facility] Emergency MD URINE ORDERABLES Floridalma l Result [facility] CLIA# [id number] [place] [address] * (ABNORMAL) CBC WITH DIFFERENTIAL (03/19/2025 4:23 PM CDT) WBC 5.3 4.0 - 9.8 K/uL 03/19/2025 4:48 PM CDT [facility] RBC 5.80(H) 4.50 - 5.40 M/uL 03/19/2025 4:48 PM CDT [facility] HEMOGLOBIN 17.8(H) 13.6 - 16.5 g/dL 03/19/2025 4:48 PM CDT [facility] HEMATOCRIT 52.3(H) 40.0 - 48.0 % 03/19/2025 4:48 PM CDT [facility] MCV 90.2 82.0 - 99.0 fL 03/19/2025 4:48 PM CDT [facility] MCH 30.7 27.2 - 32.6 pg 03/19/2025 4:48 PM CDT [facility] MCHC 34.0 31.5 - 35.5 g/dL 03/19/2025 4:48 PM CDT [facility] RDW 14.0 11.5 - 14.5 % 03/19/2025 4:48 PM CDT [facility] RDW-STDEV 46.4 37.1 - 48.7 fL 03/19/2025 4:48 PM CDT [facility] PLATELETS 393(H) 140 - 350 K/uL 03/19/2025 4:48 PM CDT [facility] MPV 9.5 9.3 - 12.4 fL 03/19/2025 4:48 PM CDT [facility] NEUTROPHILS 48 % 03/19/2025 4:48 PM CDT [facility] LYMPHOCYTES 42 % 03/19/2025 4:48 PM CDT [facility] MONOCYTES 8 % 03/19/2025 4:48 PM CDT [facility] EOSINOPHILS 2 % 03/19/2025 4:48 PM CDT [facility] BASOPHILS 1 % 03/19/2025 4:48 PM CDT [facility] IMMATURE GRANULOCYTES 0 % 03/19/2025 4:48 PM CDT [facility] NEUTROPHIL ABSOLUTE 2.52 1.90 - 7.00 K/uL 03/19/2025 4:48 PM CDT [facility] LYMPHOCYTE ABSOLUTE 2.22 0.70 - 4.50 K/uL 03/19/2025 4:48 PM CDT [facility] MONOCYTE ABSOLUTE 0.41 0.10 - 1.30 K/uL 03/19/2025 4:48 PM CDT [facility] EOSINOPHIL ABSOLUTE 0.08 0.00 - 0.70 K/uL 03/19/2025 4:48 PM CDT [facility] BASOPHILS ABSOLUTE 0.07 0.00 - 0.20 K/uL 03/19/2025 4:48 PM CDT [facility] IMMATURE GRANULOCYTES ABSOLUTE 0.01 0.00 - 0.03 K/uL 03/19/2025 4:48 PM CDT [facility] Blood Venipuncture / Unknown 03/19/2025 4:23 PM CDT 03/19/2025 4:46 PM CDT us Protocol [facility] Emergency MD HEMATOLOGY ORDERABLES Final Result [facility] CLIA# [id number] [place] [address] * (ABNORMAL) COMPREHENSIVE METABOLIC PANEL (03/19/2025 4:23 PM CDT) SODIUM 141 136 - 145 mmol/L 03/19/2025 5:15 PM CDT [facility] POTASSIUM 3.9 3.4 - 5.1 mmol/L 03/19/2025 5:15 PM CDT [facility] CHLORIDE 103 98 - 107 mmol/L 03/19/2025 5:15 PM CDT [facility] CO2 23 22 - 29 mmol/L 03/19/2025 5:15 PM CDT [facility] CALCIUM 8.8 8.6 - 10.4 mg/dL 03/19/2025 5:15 PM CDT [facility] BUN 8 6 - 20 mg/dL 03/19/2025 5:15 PM CDT [facility] CREATININE 1.34(H) 0.67 - 1.17 mg/dL 03/19/2025 5:15 PM CDT [facility] GLUCOSE 100(H) 74 - 99 mg/dL 03/19/2025 5:15 PM CDT [facility] TOTAL PROTEIN 7.7 6.3 - 8.7 g/dL 03/19/2025 5:15 PM CDT [facility] ALBUMIN 4.5 3.5 - 5.2 g/dL 03/19/2025 5:15 PM CDT [facility] BILIRUBIN TOTAL 1.0 0.0 - 1.2 mg/dL 03/19/2025 5:15 PM CDT [facility] ALKALINE PHOSPHATASE 94 40 - 150 U/L 03/19/2025 5:15 PM CDT [facility] AST 51(H) 0 - 41 U/L 03/19/2025 5:15 PM CDT [facility] ALT 47(H) 0 - 41 U/L 03/19/2025 5:15 PM CDT [facility] GFR >60 >=60 mL/min/1.7 3 sq meter 03/19/2025 5:15 PM CDT [facility] Comment:eGFR calculated with 2020 CKD-EPI equation. Vegetarian diet, extremely high or low muscle mass, and may affect results. Cystatin C with Glomerular Filtration Rate is a suitable alternative for these patients. ANION GAP 15 8 - 16 mmol/L 03/19/2025 5:15 PM CDT [facility] Blood Venipuncture / Unknown 03/19/2025 4:23 PM CDT 03/19/2025 4:45 PM CDT us Protocol [facility] Emergency MD CHEMISTRY ORDERABLES Final Result [facility] CLIA# [id number] [place] [address] * HEMOGLOBIN A1C (01/10/2023 8:52 AM CDT) HEMOGLOBIN A1C 4.8 <5.7 % of total Hgb [facility] Comment: For the purpose of screening for the presence of diabetes: <5.7% Consistent with the absence of diabetes 5.7-6.4% Consistent with increased risk for diabetes (prediabetes) > or =6.5% Consistent with diabetes This assay result is consistent with a decreased risk of diabetes. Currently, no consensus exists regarding use of hemoglobin A1c for diagnosis of diabetes in children. According to [place] Diabetes Association (ADA) guidelines, hemoglobin A1c <7.0% represents optimal control in non- diabetic patients. Different metrics may apply to specific patient populations. Standards of Medical Care in Diabetes(ADA). ESTIMATED AVERAGE GLUCOSE (MG/DL) 91 mg/dL [facility] ESTIMATED AVERAGE GLUCOSE (MMOL/L) 5.0 mmol/L [facility] Comment: FASTING:YES FASTING: YES Test Performed at: [facility] [address] [place] [address] Nela Latif Vo Blood 01/10/2023 8:52 AM CDT 01/10/2023 8:55 AM CDT Darby Paulino MD CHEMISTRY ORDERABLES Final Re sult [facility] [phone] [facility] [place] [address] [place] [phone] from Last 3 Months or Most Recently Relevant to Health Maintenance Insurance [place] [facility] [id number] Care Teams Barge Worker Relationship Specialty Start Date End Date Darby Paulino MD [address] [place] [phone] PCP - General Family Practice 11/23/24
--- OUTSIDE RECORDS SUMMARY | 2025-03-23 15:29 | XMS_ITS | Clinical Summary ---
Author Organization [facility] [employer] Address [address] [place] [address] Care Team Providers Care Rock Singer Name Role Phone Unknown, Provider Primary Care Provider Unavaila ble Source Comments [facility] [employer],non-owned Affiliates and Associated Physician Practices is amultiple site organization consisting of ambulatory clinics and hospital sitesin [place], [place], [place] and [place]. This disclosure is being madepursuant to the Care Everywhere program and may not contain all information available regarding this patient. Last updated [email or web address] Allergies No known active allergies Medications * Be aware that medications may not be up to date on this document. Alwaysverify current medications with the patient. No known medications Family History Medical History Relation Name Comments ADHD Neg Hx Allergies Neg Hx Aneurysm Neg Hx Asthma Neg Hx Autoimmune Disease Neg Hx Bipolar Disorder Neg Hx CVA<55(male) Neg Hx CVA<65(female) Neg Hx Cancer - Breast Neg Hx Cancer - Colon Neg Hx Cancer - Other Neg Hx Cancer - Ovarian Neg Hx Cancer - Pancreatic Neg Hx Cancer - Prostate Neg Hx Childhood Hearing Disorder Neg Hx Clotting Disorder Neg Hx Depression Neg Hx Diabetes Neg Hx Eczema Neg Hx Genetic Neg Hx Heart defect Neg Hx Hypercholesterolemia Neg Hx Hypertension Neg Hx HI<55(male) Neg Hx HI<65(female) Neg Hx Mental Health Neg Hx Migraine Neg Hx Osteoporosis Neg Hx Seizures Neg Hx Sudd. <30 Neg Hx Thyroid Disease Neg Hx Ulcerative Colitis Neg Hx Social History Tobacco Use Types Packs/Day Years Used Date Smoking Tobacco: Never Sex and Gender Information Value Date Recorded Sex Assigned at Not on file Legal Sex Male 4:34 PM CDT Gender Identity Not on file Sexual Orientation Not on file Last Filed Vital Signs Vital Sign Reading Time Taken Comments Blood Pressure 128/86 03/14/2016 12:08 PM CDT Pulse 62 03/14/2016 12:08 PM CDT Temperature 36.8 C (98.3 F) 03/14/2016 12:08 PM CDT Respiratory Rate 16 03/14/2016 12:08 PM CDT Oxygen Saturation 97% 03/14/2016 12:08 PM CDT Inhaled Oxygen Concentration - - Weight 90.7 kg (200 lb) 03/14/2016 12:08 PM CDT Height 176.5 cm (5' 9.5) 03/14/2016 12:08 PM CD T Body Mass Index 29.11 03/14/2016 12:08 PM CDT Plan of Treatment Health Maintenance Due Date Last Done Comments HIV SCREENING 2004 HEPATITIS C SCREENING 06/11/2007 DTAP/TDAP/TD VACCINES (1 - Tdap) 2008 HEPATITIS B VACCINE (1 of 3 - 19+ 3-dose series) 2008 HPV VACCINE (1 - 3-dose SCDM series) 2016 DEPRESSION SCREENING 06/09/2024 COVID-19 VACCINE (1 - 2023-2 5 season) 2025 INFLUENZA VACCINE (#1) 2025 ZOSTER VACCINE (1 of 2) 2039 HIB VACCINE Aged Out No longer eligi ble based on patient's age to complete this topic MENINGOCOCCAL (Group B) VACC INE SHARED DECISION-MAKING Aged Out No longer eligibl e based on patient's age to complete this topic MENINGOCOCCAL GROUPS A/C/Y/W VACCINE Aged Out No longer eligible b ased on patient's age to complete this topic PNEUMOCOCCAL VACCINE Aged Out No long er eligible based on patient's age to complete this topic Care Teams Rock Singer Relationship Specialty Start Date End Date Unknown, Provider PCP - General 03/14/16
--- OUTSIDE RECORDS SUMMARY | 2025-03-23 15:29 | XMS_ITS | Encounter Summary ---
Author Organization [facility] Address [address] [place] [address] Care Team Providers Care Securities Analyst Name Role Phone Boo Jernigan MD Primary Care Prov ider Pramod Garza MD Primary Care Provi debbi Pramod Garza MD Primary Care Provi debbi Dorian Lozano MD Unavailable [phone] Lucas Alexandre MD Unavailable [phone] Encounter Details Date Type Department Care Team (Late st Contact Info) Description 11/29/2019 Telephone [facility] Occupatiuonal Health [address] [address] Ghada Rizzo RN Social History Tobacco Use Types Packs/Day Years Used Date Smoking Tobacco: Never Assessed Sex and Gender Information Value Date Recorded Sex Assigned at Not on file Legal Sex Male 7:22 PM CDT Gender Identity Male 10/05/2020 12:17 PM CDT Sexual Orientation Not on file documented as of this encounter Plan of Treatment Not on file documented as of this encounter Visit Diagnoses Not on filedocumented in this encounter Additional Health Concerns Infection Onset Date Last Indicated Resolved Time COVID: Suspected 11/29/2019 11/29/2019 12/01/2019 2:46 AM CDT Respiratory Infection (JANUSZ), contact + droplet Comment:Automatically added due to negative COVID-19 result. 12/01/2019 12/01/2019 12/15/2019 3:0 5 AM CDT COVID: Suspected 02/08/2020 02/08/2020 02/09/2020 9:52 AM CDT Respiratory Infection (JANUSZ), contact + droplet Comment:Automatically added due to negative COVID-19 result. 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 03/20/2024 03/22/2024 06/18/2024 3:[address] COVID: Suspected 10/21/2024 10/21/2024 10/21/2024 6:17 PM CDT documented as of this encounter Care Teams Securities Analyst Relationship Specialty Start Date End Date Boo Jernigan MD PCP - General Family Medicine 05/01/20 07/20/20 Pramod Garza MD [address] [address] PCP - General Family Medicine 07/21/20 10/13/23 Pramod Garza MD [address] [address] PCP - General Family Medicine 10/29/23 Dorian Lozano MD [address] [facility] [address] [facility] [address] [place] [address] Consulting Physician Transplant 11/02/23 Lucas Alexandre MD [address] [facility] [address] [place] [address] Consulting Physician Interventional Cardiology 11/02/23 documented as of this encounter
--- OUTSIDE RECORDS SUMMARY | 2025-03-23 16:11 | XMS_ITS | Encounter Summary ---
Author Organization [facility] Address [address] [place] [address] Care Team Providers Care Quality Management Coordinator Name Role Phone Boo Jernigan MD Primary Care Prov ider Pramod Garza MD Primary Care Provi debbi Pramod Garza MD Primary Care Provi debbi Dorian Lozano MD Unavailable Lucas Alexandre MD Unavailable [phone] Encounter Details Date Type Department Care Team (Late st Contact Info) Description 11/29/2019 Telephone [facility] Occupatiuonal Health [address] [address] Ghada Rizzo RN Social History [...] COVID: Suspected 05/14/2021 05/14/2021 05/14/2021 11:04 PM MRI SUPERVISOR COVID: Suspected 10/18/2023 10/18/2023 10/18/2023 10:15 PM CDT COVID: Suspected 03/10/2024 03/10/2024 03/10/2024 10:10 AM CDT COVID19 03/10/2024 03/10/2024 03/20/2024 3:06 AM CDT COVID: Recovered Comment:Added based on recent COVID infection. 03/20/2024 03/22/2024 06/18/2024 3:[address] COVID: Suspected 10/21/2024 10/21/2024 10/21/2024 6:17 PM CDT documented as of this encounter Care Teams Quality Management Coordinator Relationship Specialty Start Date End Date Boo Jernigan MD PCP - General Family Medicine 05/01/20 07/20/20 Pramod Garza MD [address] [address] PCP - General Family Medicine 07/21/20 10/13/23 Pramod Garza MD [address] [address] PCP - General Family Medicine 10/29/23 Dorian Lozano MD [address] [facility] [address] [facility] [address] [place] [address] Consulting Physician Transplant 11/02/23 Lucas Alexandre MD [address] [facility] [address] [place] [address] Consulting Physician Interventional Cardiology 11/02/23 documented as of this encounter
--- OUTSIDE RECORDS SUMMARY | 2025-03-23 16:11 | XMS_ITS | Clinical Summary ---
Author Organization [facility] Virtual Care Address [address] [place] [phone] Phone Care Team Providers Care Curator Medical Museum Name Role Phone Pramod Garza MD Primary Care Provi debbi Dorian Lozano MD Unavailable [phone] Lucas Alexandre MD Unavailable [phone] Allergies No known active allergies Medications multivit boggsvpj-myls-LB- calcium (THERA-M) 9 mg iron-400 mcg tabletIndications [...] drink = 0.6 oz pur e alcohol) [facility] Utilities Answer Date Recorded In the past 12 months has e [employer], gas, oil, or water [employer] threatened to shut off services in your [...] often do you attend chur ch or druze services? More than 4 times per year 10/22/2024 Do you belong to any clubs o r organizations such as congregational groups, unions, fraternal or athletic groups, or [...] place to sleep or slept in a custodial (including now)? No 10/21/2023 Housing Stability Vital Sign Answer Anurag e Recorded In the last 12 months, was t here a time when you were not able to pay the mortgage or rent on time? No 10/22/2024 Number of Times Moved in the Last Year Not on fi le 10/22/2024 At any time in the past 12 m [facility] [place], were you homeless or living in a custodial (including now)? No 10/22/2024 Personal Safety Answer [...] 19. Hep B core IgM Nonreactive Nonreactive [facility] Comment: Interpretive Data If HepB Core IgM Ab is reported as Equivocal, a new sample should be drawn in two weeks for testing. Current interpretive data was last revised on 19. Hep C Ab Nonreactive Nonreactive [facility] Comment: Interpretive Data Nonreactive: Antibodies to HCV [...] last revised on 2019. HepBsAg Nonreactive Nonreactive [facility] Blood 10/19/2023 3:30 PM CDT 10/19/2023 3:41 PM CDT Rudolph Diamond MD LAB MICROBIOLOGY - GENERAL O RDERABLES Final Result [facility] [address] [place] [address] from Last 3 Months or Most Recently Relevant to Health Maintenance Insurance [facility] [employer] Advance Directives For more information, please contact: [phone] * Full Code (Latest Code Status on File) Date Activated Date Inactivated Comments 10/21/2024 9:38 PM 10/23/2024 4:07 PM * Full Code Date Activated Date Inactivated Comments 10/29/2023 10:22 PM 11/02/2023 9:40 PM * Full Code Date Activated Date Inactivated Comments 10/19/2023 3:32 AM 10/23/2023 7:17 PM Care Teams Curator Medical Museum Relationship Specialty Start Date End Date Pramod Garza MD [address] [place] [address] PCP - General Family Medicine 10/29/23 Dorian Lozano MD [address] [place] [address] Consulting Physician Transplant 11/02/23 Lucas Alexandre MD [address] [place] [address] Consulting Physician Interventional Cardiology 11/02/23
--- OUTSIDE RECORDS SUMMARY | 2025-03-23 16:11 | XMS_ITS | Clinical Summary ---
Author Organization [facility] Ship It Bag Check Address [address] [place] [address] Care Team Providers Care Laboratory Worker Name Role Phone Unknown, Provider Primary Care Provider Unavaila ble Source Comments [facility] Ship It Bag Check,non-owned Affiliates and Associated Physician Practices is amultiple site organization consisting of ambulatory clinics and hospital sitesin [place], [place] and [place]. This disclosure is being madepursuant to the Care Everywhere program and may not contain all information available regarding this patient. Last updated 18.[employer] Ship It [facility] Check Allergies No known active allergies Medications * [...] Hx Hypercholesterolemia Neg Hx Hypertension Neg Hx [place]<55(male) Neg Hx [place]<65(female) Neg Hx Mental Health Neg Hx Migraine [...] age to complete this topic Care Teams Laboratory Worker Relationship Specialty Start Date End Date Unknown, Provider PCP - General 03/14/16
--- OUTSIDE RECORDS SUMMARY | 2025-03-23 16:11 | XMS_ITS | Clinical Summary ---
Author Organization [facility] Address [address] [place] [address] Phone Care Team Providers Care Upstairs Maid Name Role Phone Darby Paulino MD Primary Care Provider [phone] Allergies No known active allergies Medications multivitamin [...] CDT - 03/19/2025 5:20 PM CDT Emergency [facility] Emergency Department [address] [place] [address] Discharge Disposition: Left without being seen 03/08/2025 Refill [facility] [address] [place] [id number] Darby Paulino MD Attention deficit hyperactivity disorder (ADHD), predominantly inattentive type 02/22/2025 External Device Data [facility] ABSTRACTION Provider, Abstract 02/22/2025 External Device Data [facility]STRACTION Provider, Abstract 02/11/2025 Refill [facility] [address] [place] [address] Darby Paulino MD Attention deficit hyperactivity disorder (ADHD), predominantly inattentive type 02/08/2025 External Device Data [facility] ABSTRACTION Provider, Abstract 01/25/2025 External Device Data [facility] ABSTRACTION Provider, Abstract 01/25/2025 External Device Data [facility] [place]STRACTION Provider, Abstract 01/11/2025 External Device Data [facility] [place]STRACTION Provider, Abstract 01/11/2025 External Device Data [facility] ABSTRACTION Provider, Abstract 12/28/2024 Telephone [facility] [address] [place] [address] Darby Paulion MD Medication Assistance 12/22/2024 8:40 AM CDT Office Visit [facility] [address] [place] [address] Darby Paulino MD Anxiety (Primary Dx); Attention [...] st Contact Info) Description 06/29/2025 8:40 AM ADVISORY INTERN Office Visit [facility] Primary Care [address] [phone] Darby Paulino MD [address] [place] [phone] Health Maintenance Due Date Last Done [...] CDT 03/19/2025 4:44 PM CDT us Protocol [facility] Emergency MD URINE ORDERABLES Floridalma bruce Result [facility] CLIA# [id number] [address] [place] [address] * (ABNORMAL) URINALYSIS WITH REFLEX MICROSCOPIC (03/19/2025 4:33 PM CDT) COLOR UA Yellow Pale to Dark Yellow 03/19/2025 5:02 PM CDT [facility] CLARITY UA Clear Clear 03/19/2025 5:02 PM CDT [facility] SPECIFIC GRAVITY UA 1.021 1.003 - 1.035 03/19/2025 5:02 PM CDT [facility] PH UA 6.0 5.0 - 8.0 03/19/2025 5:02 PM CDT [facility] LEUKOCYTE ESTERASE UA Negative Negative 03/19/2025 5:02 PM CDT [facility] NITRITE UA Negative Negative 03/19/2025 5:02 PM CDT [facility] PROTEIN UA Negative Negative 03/19/2025 5:02 PM CDT [facility] GLUCOSE UA 3+(A) Negative 03/19/2025 5:02 PM CDT [facility] KETONES UA Negative Negative 03/19/2025 5:02 PM CDT [facility] UROBILINOGEN UA Normal <2.0 mg/dL 5:02 PM CDT [facility] BILIRUBIN UA Negative Negative 03/19/2025 5:02 PM CDT [facility] BLOOD UA Negative Negative 03/19/2025 5:02 PM CDT [facility] WBC UA 0-2 0 - 2 /hpf 03/19/2025 5:02 PM CDT [facility] RBC UA 3-5(A) 0 - 2 /hpf 03/19/2025 5:02 PM CDT [facility] BACTERIA UA 1+(A) Negative /hpf 03/19/2025 5:02 PM CDT [facility] EPITHELIAL CELLS, URINE 0-5 0 - 5 /hpf 03/19/2025 5:02 PM CDT [facility] HYALINE CAST None Seen None Seen, 0-2 /lpf 03/19/2025 5:02 PM CDT [facility] Urine URINE SPECIMEN OBTAINED BY CLEAN CATCH PROCEDURE / Unknown Collection / Unknown 03/19/2025 4:33 PM CDT 03/19/2025 4:44 PM CDT us Protocol [facility] Emergency MD URINE ORDERABLES Floridalma l Result [facility] CLIA# [id number] [place] [address] * (ABNORMAL) CBC WITH DIFFERENTIAL (03/19/2025 4:23 PM CDT) WBC 5.3 4.0 - 9.8 K/uL 03/19/2025 4:48 PM CDT [facility] RBC 5.80(H) 4.50 - 5.40 M/uL 03/19/2025 4:48 PM CDT [facility] HEMOGLOBIN 17.8(H) 13.6 - 16.5 g/dL 03/19/2025 4:48 PM CDT [facility] HEMATOCRIT 52.3(H) 40.0 - 48.0 % 03/19/2025 4:48 PM CDT [facility] MCV 90.2 82.0 - 99.0 fL 03/19/2025 4:48 PM CDT [facility] MCH 30.7 27.2 - 32.6 pg 03/19/2025 4:48 PM CDT [facility] MCHC 34.0 31.5 - 35.5 g/dL 03/19/2025 4:48 PM CDT [facility] RDW 14.0 11.5 - 14.5 % 03/19/2025 4:48 PM CDT [facility] RDW-STDEV 46.4 37.1 - 48.7 fL 03/19/2025 4:48 PM CDT [facility] PLATELETS 393(H) 140 - 350 K/uL 03/19/2025 4:48 PM CDT [facility] MPV 9.5 9.3 - 12.4 fL 03/19/2025 4:48 PM CDT [facility] NEUTROPHILS 48 % 03/19/2025 4:48 PM CDT [facility] LYMPHOCYTES 42 % 03/19/2025 4:48 PM CDT [facility] MONOCYTES 8 % 03/19/2025 4:48 PM CDT [facility] EOSINOPHILS 2 % 03/19/2025 4:48 PM CDT [facility] BASOPHILS 1 % 03/19/2025 4:48 PM CDT [facility] IMMATURE GRANULOCYTES 0 % 03/19/2025 4:48 PM CDT [facility] NEUTROPHIL ABSOLUTE 2.52 1.90 - 7.00 K/uL 03/19/2025 4:48 PM CDT [facility] LYMPHOCYTE ABSOLUTE 2.22 0.70 - 4.50 K/uL 03/19/2025 4:48 PM CDT [facility] MONOCYTE ABSOLUTE 0.41 0.10 - 1.30 K/uL 03/19/2025 4:48 PM CDT [facility] EOSINOPHIL ABSOLUTE 0.08 0.00 - 0.70 K/uL 03/19/2025 4:48 PM CDT [facility] BASOPHILS ABSOLUTE 0.07 0.00 - 0.20 K/uL 03/19/2025 4:48 PM CDT [facility] IMMATURE GRANULOCYTES ABSOLUTE 0.01 0.00 - 0.03 K/uL 03/19/2025 4:48 PM CDT [facility] Blood Venipuncture / Unknown 03/19/2025 4:23 PM CDT 03/19/2025 4:46 PM CDT us Protocol [facility] Emergency MD HEMATOLOGY ORDERABLES Final Result [facility] CLIA# [id number] [place] [address] * (ABNORMAL) COMPREHENSIVE METABOLIC PANEL (03/19/2025 4:23 PM CDT) SODIUM 141 136 - 145 mmol/L 03/19/2025 5:15 PM CDT [facility] POTASSIUM 3.9 3.4 - 5.1 mmol/L 03/19/2025 5:15 PM CDT [facility] CHLORIDE 103 98 - 107 mmol/L 03/19/2025 5:15 PM CDT [facility] CO2 23 22 - 29 mmol/L 03/19/2025 5:15 PM CDT [facility] CALCIUM 8.8 8.6 - 10.4 mg/dL 03/19/2025 5:15 PM CDT [facility] BUN 8 6 - 20 mg/dL 03/19/2025 5:15 PM CDT [facility] CREATININE 1.34(H) 0.67 - 1.17 mg/dL 03/19/2025 5:15 PM CDT [facility] GLUCOSE 100(H) 74 - 99 mg/dL 03/19/2025 5:15 PM CDT [facility] TOTAL PROTEIN 7.7 6.3 - 8.7 g/dL 03/19/2025 5:15 PM CDT [facility] ALBUMIN 4.5 3.5 - 5.2 g/dL 03/19/2025 5:15 PM CDT [facility] BILIRUBIN TOTAL 1.0 0.0 - 1.2 mg/dL 03/19/2025 5:15 PM CDT [facility] ALKALINE PHOSPHATASE 94 40 - 150 U/L 03/19/2025 5:15 PM CDT [facility] AST 51(H) 0 - 41 U/L 03/19/2025 5:15 PM CDT [facility] ALT 47(H) 0 - 41 U/L 03/19/2025 5:15 PM CDT [facility] GFR >60 >=60 mL/min/1.7 3 sq meter 03/19/2025 5:15 PM CDT [facility] Comment:eGFR calculated with 2020 CKD-EPI equation. Vegetarian diet, extremely high or low muscle mass, and may affect results. Cystatin C with Glomerular Filtration Rate is a suitable alternative for these patients. ANION GAP 15 8 - 16 mmol/L 03/19/2025 5:15 PM CDT [facility] Blood Venipuncture / Unknown 03/19/2025 4:23 PM CDT 03/19/2025 4:45 PM CDT us Protocol [facility] Emergency MD CHEMISTRY ORDERABLES Final Result [facility] CLIA# [id number] [place] [address] * HEMOGLOBIN A1C (01/10/2023 8:52 AM CDT) HEMOGLOBIN A1C 4.8 <5.7 % of total Hgb [facility] Comment: For the purpose of screening for the presence of diabetes: <5.7% Consistent with the absence of diabetes 5.7-6.4% Consistent with increased risk for diabetes (prediabetes) > or =6.5% Consistent with diabetes This assay result is consistent with a decreased risk of diabetes. Currently, no consensus exists regarding use of hemoglobin A1c for diagnosis of diabetes in children. According to [place] Diabetes Association (ADA) guidelines, hemoglobin A1c <7.0% represents optimal control in non- diabetic patients. Different metrics may apply to specific patient populations. Standards of Medical Care in Diabetes(ADA). ESTIMATED AVERAGE GLUCOSE (MG/DL) 91 mg/dL [facility] ESTIMATED AVERAGE GLUCOSE (MMOL/L) 5.0 mmol/L [facility] Comment: FASTING:YES FASTING: YES Test Performed at: [facility] [address] [place] [address] Nela Latif Vo Blood 01/10/2023 8:52 AM CDT 01/10/2023 8:55 AM CDT Darby Paulino MD CHEMISTRY ORDERABLES Final Re sult [facility] [phone] [place] [address] [place] [address] from Last 3 Months or Most Recently Relevant to Health Maintenance Insurance [employer] [facility] [employer] [id number] Care Teams Upstairs Maid Relationship Specialty Start Date End Date Darby Paulino MD [address] [place] [phone] PCP - General Family Practice 11/23/24
--- OUTSIDE RECORDS SUMMARY | 2025-03-23 16:11 | XMS_ITS | Clinical Summary ---
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
[2025-03-23 16:21] LABS: Troponin I < 0.012 ng/mL (0.000-0.034)
== END 2025-03-23 16:38 | disposition home or self-care (01) ==
PROVIDERS: Emergency Provider Emergency Medicine
DX: E86.0 Dehydration (principal); Z79.899 Other long term (current) drug therapy
CPT/HCPCS: 36415; 71045; 80053; 83605; 83690; 83735; 83880; 84484; 85025; 85380; 85610; 85730; 93005; 96365; 96366; 96375; 99284; A9270; J2405; J2470; J3360; J3411; J3475; J7030; J7040